=== PATIENT | male | born 1975 ===

== ENCOUNTER 2016-09-18 16:33 | Inpatient (IN) | payer OTHER ==
[2016-09-18 16:54] VITALS: O2SAT 97; BMI 31.3
--- NOTE | 2016-09-18 17:25 | ED PDOC ---
Arrival/HPI - General Chief Complaint: Back Pain Time Seen by Provider: 09/18/16 16:59 Historian: Patient - History of Present Illness Narrative History of Present Illness (Text): 09/18/16 17:19 40 year old male whose past medical history includes depression presents to the emergency department with bilateral lower back pain after doing heavy lifting 3 days ago. He also reports headache and nausea. No urinary or bowel incontinence , saddle anesthesia, or weakness. Time/Duration: < week Symptom Onset: Gradual Symptom Course: Unchanged Activities at Onset: Significant Past Medical History - Provider Review Nursing Documentation Reviewed: Yes - Infectious Disease Hx of Infectious Diseases: None - Cardiac Hx Cardiac Disorders: No Hx Hypertension: No - Pulmonary Hx Respiratory Disorders: No Hx Tuberculosis: No - Neurological Hx Neurological Disorder: No Hx Seizures: Yes (Alcohol related) - HEENT Hx HEENT Disorder: No - Renal Hx Renal Disorder: No - Endocrine/Metabolic Hx Endocrine Disorders: No - Hematological/Oncological Hx Blood Disorders: No Hx Cancer: No - Integumentary Hx Dermatological Disorder: No - Musculoskeletal/Rheumatological Hx Falls: No Hx Fractures: Yes (LEFT ANKLE) - Gastrointestinal Hx Colitis: Yes (Patient reported) HX Swallowing Problems: Yes (Patient reported) - Genitourinary/Gynecological Hx Genitourinary Disorders: No Hx Sexually Transmitted Diseases: No - Psychiatric Hx Anxiety: Yes Hx Depression: Yes Hx Substance Use: No - Surgical History Hx Appendectomy: Yes (13 years ago reported by patient) - Anesthesia Hx Anesthesia: Yes Hx Anesthesia Reactions: No Hx Malignant Hyperthermia: No Family/Social History - Physician Review Nursing Documentation Reviewed: Yes Family/Social History: Unknown Family HX Smoking Status: Heavy Smoker > 10 Cigarettes Daily Hx Alcohol Use: No Hx Substance Use: No Allergies/Home Meds Allergies/Adverse Reactions: Allergies No Known Allergies Allergy (Verified 01/29/16 19:10) Home Medications: Home Meds Medication Instructions Recorded Confirmed Clonazepam [Klonopin] 2 mg PO TID 09/18/16 09/18/16 Risperidone [Risperdal] 1 mg PO HS 09/18/16 09/18/16 busPIRone [Buspar] 5 mg PO DAILY 09/18/16 09/18/16 Review of Systems - Physician Review All systems were reviewed & negative as marked: Yes - Review of Systems Gastrointestinal: Nausea Genitourinary Male: Other (No incontinence) Musculoskeletal: Back Pain Neurological: Headache, Other (No saddle anesthesia or weakness) Physical Exam Vital Signs Reviewed: Yes Vital Signs Temp Pulse Resp BP Pulse Ox 09/18/16 16:51 98.0 F 77 16 124/82 97 Temperature: Afebrile Blood Pressure: Normal Pulse: Regular Respiratory Rate: Normal Appearance: Positive for: Well-Appearing, Non-Toxic, Uncomfortable Pain Distress: Moderate Mental Status: Positive for: Alert and Oriented X 3 - Systems Exam Head: Present: Atraumatic, Normocephalic Pupils: Present: PERRL Extroacular Muscles: Present: EOMI Conjunctiva: Present: Normal Mouth: Present: Moist Mucous Membranes Neck: Present: Normal Range of Motion Respiratory/Chest: Present: Clear to Auscultation, Good Air Exchange. No: Respiratory Distress, Accessory Muscle Use Cardiovascular: Present: Regular Rate and Rhythm, Normal S1, S2. No: Murmurs Abdomen: Present: Normal Bowel Sounds. No: Tenderness, Distention, Peritoneal Signs Back: Present: Paraspinal Tenderness (Lower lumbar tenderness bilaterally), Pain with Leg Raise (Bilaterally with 45 degrees ) Upper Extremity: Present: Normal Inspection. No: Cyanosis, Edema Lower Extremity: Present: Normal Inspection. No: Edema Neurological: Present: GCS=15, CN II-XII Intact, Speech Normal, Motor Func Grossly Intact, Normal Sensory Function Skin: Present: Warm, Dry, Normal Color. No: Rashes Psychiatric: Present: Alert, Oriented x 3, Normal Insight, Normal Concentration Medical Decision Making ED Course and Treatment: Impression: 40 year old male whose past medical history includes depression presents to the emergency department with bilateral lower back pain after doing heavy lifting 3 days ago. Differential Diagnosis included but are not limited to: Musculoskeletal pain Plan: -- Flexeril, Toradol, Zofran -- Reassess and disposition Progress Notes: Patient refused toradol, stating that he always gets something stronger for his back pain issues. I told him to him about the medication and he agreed to take it but he said it's not going to work. Patient is exhibiting drug seeking behavior. 09/18/16 18:25 Patient states that he wants to speak to Psychiatry because he wants to harm himself now. He says that he has a razor blade in his pocket. He is exhibiting drug seeking behavior. After pain medication he appears in no painful distress and is able to walk without ataxia. 09/18/16 20:35 Case discussed with VINNY, who will admit patient to Dr. Bree Bates's service. Valium 5mg PO ordered for muscle spasm. - Lab Interpretations Lab Results: 09/18/16 19:30 09/18/16 19:30 Lab Results 09/18/16 19:30: Alcohol, Quantitative < 10 09/18/16 19:30: Salicylates < 1 L, Acetaminophen < 10.0 L 09/18/16 19:30: Sodium 138, Potassium 4.1, Chloride 104, Carbon Dioxide 25, Anion Gap 13, BUN 18, Creatinine 1.3, Est GFR ( Amer) > 60, Est GFR (Non- Af Amer) > 60, Random Glucose 77, Calcium 9.1, Total Bilirubin 0.7, AST 29, ALT 30, Alkaline Phosphatase 50, Total Protein 7.2, Albumin 4.3, Globulin 2.9, Albumin/Globulin Ratio 1.5 09/18/16 19:30: WBC 10.6, RBC 4.51, Hgb 14.1, Hct 40.7 L, MCV 90.2, MCH 31.3, MCHC 34.6, RDW 13.0, Plt Count 272, MPV 8.6, Gran % 63.2, Lymph % (Auto) 24.5, Avery % (Auto) 4.4, Eos % (Auto) 7.4 H, Baso % (Auto) 0.5, Gran # 6.68 H, Lymph # 2.6, Avery # 0.5, Eos # 0.8 H, Baso # 0.05 - EKG Interpretation Interpreted by ED Physician: Yes (EKG shows NSR at 62 BPM, otherwise normal) Type: 12 lead EKG - Medication Orders Current Medication Orders: Discontinued Medications Cyclobenzaprine HCl (Flexeril) 10 mg PO STAT STA Stop: 09/18/16 17:06 Last Admin: 09/18/16 17:25 Dose: 10 mg Sodium Chloride (Sodium Chloride 0.9%) 1,000 mls @ 999 mls/hr IV .Q1H1M STA Stop: 09/18/16 19:21 Ketorolac Tromethamine (Toradol) 60 mg IM STAT STA Stop: 09/18/16 17:06 Last Admin: 09/18/16 17:25 Dose: 60 mg Ondansetron HCl (Zofran Odt) 4 mg PO STAT STA Stop: 09/18/16 17:07 Last Admin: 09/18/16 17:25 Dose: Not Given Non-Admin Reason: Patient Refused - Scribe Statement The provider has reviewed the documentation as recorded by the Susan Anderson Provider Scribe Attestation: All medical record entries made by the Susan were at my direction and personally dictated by me. I have reviewed the chart and agree that the record accurately reflects my personal performance of the history, physical exam, medical decision making, and the department course for this patient. I have also personally directed, reviewed, and agree with the discharge instructions and disposition. Disposition/Present on Arrival - Present on Arrival Any Indicators Present on Arrival: No History of DVT/PE: No History of Uncontrolled Diabetes: No Urinary Catheter: No History of Decub. Ulcer: No History Surgical Site Infection Following: None - Disposition Have Diagnosis and Disposition been Completed?: Yes Diagnosis: Depression, Suicidal ideation, Back pain Disposition Time: 20:36 Patient Plan: Admission Condition: FAIR Referrals: PCP,NO [Primary Care Provider] - Follow up with primary
[2016-09-18] MEDS ORDERED: Sodium Chloride 0.9% 1,000 ML IV STA (18:21)
[2016-09-18 19:37] LABS: ADD MANUAL DIFF? NO
[2016-09-18 19:40] LABS: BASO # 0.05 K/mm3 (0.0-2.0); BASO % 0.5 % (0.0-3.0); EOS # 0.8 (0.0-0.7); EOS % 7.4 % (1.5-5.0); GRAN # 6.68 (1.4-6.5); GRAN % 63.2 % (50.0-68.0); HEMATOCRIT 40.7 % (42.0-52.0); LYMPH # 2.6 (1.2-3.4); LYMPH % 24.5 % (22.0-35.0); MEAN CELL VOLUME 90.2 fL (80.0-105.0); MEAN CORPUSCULAR HEMOGLOBIN 31.3 pg (25.0-35.0); MEAN CORPUSCULAR HGB CONC 34.6 g/dl (31.0-37.0); MEAN PLATELET VOLUME 8.6 fl (7.0-11.0); MONO # 0.5 (0.1-0.6); MONO % 4.4 % (1.0-6.0); PLATELET COUNT 272 10^3/uL (120.0-450.0); WHITE BLOOD COUNT 10.6 10^3/ul (4.5-11.0)
[2016-09-18 19:54] LABS: ALB/GLOB RATIO 1.5 (1.1-1.8); ALKALINE PHOSPHATASE 50 U/L (38-133); ALT/SGPT 30 U/L (7-56); AST/SGOT 29 U/L (15-59); BILIRUBIN,TOTAL 0.7 mg/dL (0.2-1.3); BLOOD UREA NITROGEN 18 mg/dL (7-21); CALCIUM 9.1 mg/dL (8.4-10.5); CARBON DIOXIDE 25 mmol/L (21-33); CHLORIDE 104 mmol/L (95-110); GFR AFRICAN-AMERICAN > 60; GLUCOSE,RANDOM 77 mg/dL (70-110); POTASSIUM 4.1 mmol/L (3.6-5.0); SODIUM 138 mmol/L (132-148); TOTAL PROTEIN 7.2 g/dL (5.8-8.3)
[2016-09-18] MEDS ORDERED: Alum-Mag Hydrox-Simethicone Susp (30 mL) PO PRN (23:00)
[2016-09-18] MEDS ORDERED: Magnesium Hydroxide Susp 30 ml UD PO PRN (23:00)
--- NOTE | 2016-09-19 04:03 | PCM.BM ---
<Nato Hurley - Last Filed: 09/19/16 06:43> Treatment Plan Problems - Problems identified on initial assessmt suicidal ideation Date Initiated: 09/18/16 Time Initiated: 21:50 Assessment reference: NA Status: Active (de) depression Date Initiated: 09/18/16 Time Initiated: 21:50 Assessment reference: NA Status: Active Treatment assets and liabiliti Patient Assests: cooperative, self-reliant, ADL independent Patient Liabilities: physical pain, substance abuse - Milieu Protocol Maintain good personal hygiene: daily Encourage regular showers, daily Remind patient to perform daily oral care, every shift Assist patient to perform ADL's Maintain personal safety: daily Monitor environment for contraband/sharps, every shift Educate patient to report safety concerns to staff Medication safety: Monitor for expected outcome, potential side effects: every shift, Assess barriers to learning: every shift, Assess readiness for medication education: every shift Family Contact - Goals for Treatment Patient goals for treatment: "pain treatment" <Bree Page - Last Filed: 09/19/16 13:00> - Diagnosis (1) Back pain Status: Acute Interventions: 09/19/16 12:58 * Assess/adjust medications daily and /or as needed * medical team was called * meds compliant * PT evaluation (2) Depression Status: Acute Interventions: 09/19/16 12:58 * Assess/adjust medications daily and /or as needed * See patient on an individual basis 7x/week to assess symptoms of depression * Monitor for side effects & effectiveness of medications * suicide and homicide prevention * safety plan (3) Suicidal ideation Status: Acute Interventions: 09/19/16 12:59 * Assess/adjust medications daily and /or as needed * Discuss risks, benefits, side effects and alternatives of medications * See patient on an individual basis 7x/week to assess level of suicidal thoughts * pt denied thoughts of harming self or others, still pt was educated about safety plan, coping strategies
[2016-09-19 07:42] VITALS: BP 111/58; PULSE 77; RESP 18; TEMP 97.8
--- NOTE | 2016-09-19 11:11 | CARD ---
APPROVED REPORT EKG Measurement Heart [id number] <Conclusion> Normal sinus rhythm Normal ECG
--- NOTE | 2016-09-19 12:30 | CP.PCM.CON ---
History of Present Illness - History of Present Illness History of Present Illness: Internal Medicine Consult Consulted for medical evaluation and management for patient is psychiatric unit. Patient is refusing evaluation at this time and plans to leave AMA. Will sign off. Reconsult if needed. Past Patient History - Infectious Disease Hx of Infectious Diseases: None - Past Social History Smoking Status: Heavy Smoker > 10 Cigarettes Daily - CARDIAC Hx Cardiac Disorders: No Hx Hypertension: No - PULMONARY Hx Tuberculosis: No - NEUROLOGICAL HX Cerebrovascular Accident: No Hx Seizures: Yes (Alcohol related) - HEENT Hx HEENT Problems: No - RENAL Hx Chronic Kidney Disease: No - ENDOCRINE/METABOLIC Hx Endocrine Disorders: No - HEMATOLOGICAL/ONCOLOGICAL Hx Cancer: No Hx Human Immunodeficiency Virus (HIV): No - INTEGUMENTARY Hx Dermatological Problems: No - MUSCULOSKELETAL/RHEUMATOLOGICAL Hx Falls: No Hx Fractures: Yes (LEFT ANKLE) - GASTROINTESTINAL Hx Colitis: Yes (Patient reported) HX Swallowing Problems: Yes (Patient reported) - GENITOURINARY/GYNECOLOGICAL Hx Sexually Transmitted Disorders: No - PSYCHIATRIC Hx Depression: Yes Hx Substance Use: No - SURGICAL HISTORY Hx Appendectomy: Yes (13 years ago reported by patient) - ANESTHESIA Hx Anesthesia: Yes Hx Anesthesia Reactions: No Hx Malignant Hyperthermia: No Meds Allergies/Adverse Reactions: Allergies Allergy/AdvReac Type Severity Reaction Status Date / Time No Known Allergies Allergy Verified 09/18/16 22:57 - Medications Medications: Current Medications Acetaminophen (Tylenol 325mg Tab) 650 mg PO Q4 PRN PRN Reason: Pain, moderate (4-7) Al Hydrox/Mg Hydrox/Simethicone (Maalox Plus 30 Ml) 30 ml PO DAILY PRN PRN Reason: Upset Stomach Buspirone HCl (Buspar) 5 mg PO DAILY ELOY PRN Reason: Protocol Last Admin: 09/19/16 07:37 Dose: 5 mg Clonazepam (Klonopin) 2 mg PO TID ELOY PRN Reason: Protocol Last Admin: 09/19/16 07:38 Dose: 2 mg Ibuprofen (Motrin Tab) 400 mg PO Q6H PRN PRN Reason: Pain, severe (8-10) Last Admin: 09/19/16 07:37 Dose: 400 mg Magnesium Hydroxide (Milk Of Magnesia) 30 ml PO DAILY PRN PRN Reason: Constipation Nicotine (Nicoderm Cq) 1 patch TD DAILY ELOY Last Admin: 09/19/16 07:38 Dose: 1 patch Risperidone (Risperdal Tab) 1 mg PO DAILY ELOY PRN Reason: Protocol Last Admin: 09/19/16 07:37 Dose: 1 mg Sertraline HCl (Zoloft) 100 mg PO DAILY ELOY Last Admin: 09/19/16 07:37 Dose: 100 mg Results - Vital Signs Recent Vital Signs: Last Vital Signs Temp 97.8 F 09/19/16 07:41 Pulse 77 09/19/16 07:41 Resp 18 09/19/16 07:41 BP 111/58 L 09/19/16 07:41 Pulse Ox 97 09/18/16 16:51 - Labs Result Diagrams: 09/18/16 19:30 09/18/16 19:30 Labs: Laboratory Results - last 24 hr 09/18/16 21:10 Urine Opiates Screen Negative Urine Methadone Screen Negative Ur Barbiturates Screen Negative Ur Phencyclidine Scrn Negative Ur Amphetamines Screen Negative U Benzodiazepines Scrn Positive H U Oth Cocaine Metabols Negative U Cannabinoids Screen Negative
--- NOTE | 2016-09-19 13:31 | PCM.PSYCH ---
Initial Psychiatric Evaluation - Initial Psychiatric Evaluation Type of Admission: Voluntary Legal Status: Capacity (patient has capacity to sign consent for treatment) Chief Complaint (in patient's own words): "they promise me that I will be seen by pain management doctor here, they lied to me, I never said that I wanted to kill myself, I said that I have thoughts of cutting myself, but I said so out of frustration" Patient's Reaction to Hospitalization: patient was admitted to the psychiatric inpatient unit for observation of possible thoughts of harming himself, possible depressive symptoms. History of Present Illness and Precipitating Events: shortly patient is 40 years old male, 2 previous psychiatric admissions at [facility] as well as this facility, pt came to [facility] looking for a help for his back problem, which he claimed hurt three days ago, in the ED when pt got to know that he will be discharged, pt said that he wants to cut himself because "this f...ing medication does not work for me" (pt was prescribed toradol). pt was admitted for observation, at the moment of admission pt said that he wants to be discharged because his pain was not addressed, pt signed 48hr notice. patient was seen today at the treatment team meeting, patient presented to have good personal hygiene, good ADLs, presented better to compare to the previous admission which took place here in [facility] in January 2016. pt was observed ambulating with no problems, at the same time pt was holding his back during the interview. when pt was asked what is his goal for this admission pt said "they promised me in the emergency that you will give me pain medications and I will be seen by pain specialist", at the same time pt refused to be seen by medical team today. pt said that he mentioned that he wants to cut himself "out of frustration", and he did not want to kill himself or others. pt reported that he was doing "relatively well", pt currently employed and claimed that he hurt his back by lifting heavy boxes at work. pt said that he was compliant with medications and f/u appointments at [facility], but after he hurt his back pt was not "able to take anything". pt also reported "I am short with benzos, can you give me prescription?" no manic symptoms were elicited. pt denied using drugs. Patient smokes about a pack a day,, counseling provided And patch was provided. Smoking Cessation Counseling: The patient was counseled as to the multiple risks to his/her health from continued use of tobacco products. It was explained that continuing to smoke may lead to multiple short and terminal make up operator negative health consequences, including but not limited to mouth/esophageal /lung cancer, COPD, and heart disease. He/she states he/she understands these risks, and also understands the options and resources available to him/her to help him/her stop smoking. Nicotine replacement therapy, local hotlines, and local resources were discussed as viable options for helping him/her stop his/her tobacco use. The total time spent counseling the patient regarding tobacco cessation was 3 minutes Past psychiatric history: Patient had two admissions to the psychiatric inpatient unit, h/o alcohol use/abuse. Family history: Patient brothers suffer from depression and anxiety. Medical issues possible hypothyroidism,, hypertension, reported that he hurt his back three days ago. 09/18/16 19:30 09/18/16 19:30 Lab Results 09/18/16 21:10: Urine Opiates Screen Negative, Urine Methadone Screen Negative, Ur Barbiturates Screen Negative, Ur Phencyclidine Scrn Negative, Ur Amphetamines Screen Negative, U Benzodiazepines Scrn Positive H, U Oth Cocaine Metabols Negative, U Cannabinoids Screen Negative 09/18/16 19:30: TSH 3rd Generation 5.99 H 09/18/16 19:30: Alcohol, Quantitative < 10 09/18/16 19:30: Salicylates < 1 L, Acetaminophen < 10.0 L 09/18/16 19:30: Sodium 138, Potassium 4.1, Chloride 104, Carbon Dioxide 25, Anion Gap 13, BUN 18, Creatinine 1.3, Est GFR ( Amer) > 60, Est GFR (Non- Af Amer) > 60, Random Glucose 77, Calcium 9.1, Total Bilirubin 0.7, AST 29, ALT 30, Alkaline Phosphatase 50, Total Protein 7.2, Albumin 4.3, Globulin 2.9, Albumin/Globulin Ratio 1.5 09/18/16 19:30: WBC 10.6, RBC 4.51, Hgb 14.1, Hct 40.7 L, MCV 90.2, MCH 31.3, MCHC 34.6, RDW 13.0, Plt Count 272, MPV 8.6, Gran % 63.2, Lymph % (Auto) 24.5, Rush % (Auto) 4.4, Eos % (Auto) 7.4 H, Baso % (Auto) 0.5, Gran # 6.68 H, Lymph # 2.6, Rush # 0.5, Eos # 0.8 H, Baso # 0.05 Vital Signs Temp Pulse Resp BP Pulse Ox 09/19/16 07:41 97.8 F 77 18 111/58 L 09/18/16 21:50 97.3 F L 57 L 20 113/76 09/18/16 16:51 98.0 F 77 16 124/82 97 Current Medications: zoloft klonopin remeron Past Psychiatric History - Past Psychiatric History Previous Treatment History: Inpatient Prior Professional Help: see HPI Prior Psychiatric Treatment: see hPI At what hospital: see HPI Duration: see HPI Nature of Treatment: see HPI Explanation of prior treatment: see HPI History of Abuse: denied History of ETOH/Drug Use: see HPI History of Family Illness: see HPI Pertinent Medical Hx (Current Medical&Sleep Prob, Allergies): Allergies Allergy/AdvReac Type Severity Reaction Status Date / Time No Known Allergies Allergy Verified 09/18/16 22:57 Sertraline [Zoloft] 100 mg PO DAILY #60 tab 01/29/16 Clonazepam [Klonopin] 2 mg PO TID 09/18/16 Risperidone [Risperdal] 1 mg PO HS 09/18/16 busPIRone [Buspar] 5 mg PO DAILY 09/18/16 Review of Systems - Review of Systems Systems not reviewed;Unavailable: Acuity of Condition - EENT Eyes: As Per HPI Ears: As Per HPI Nose/Mouth/Throat: As Per HPI - Cardiovascular Cardiovascular: As Per HPI - Respiratory Respiratory: As Per HPI - Gastrointestinal Gastrointestinal: As Per HPI - Genitourinary Genitourinary: As Per HPI - Reproductive: Male Reproductive:Male: As Per HPI - Musculoskeletal Musculoskeletal: As Par HPI - Integumentary Integumentary: As Per HPI - Neurological Neurological: As Per HPI - Psychiatric Psychiatric: As Per HPI - Endocrine Endocrine: As Per HPI - Hematologic/Lymphatic Hematologic: As Per HPI Mental Status Examination - Personal Presentation Personal Presentation: Looks stated age - Affect Affect: Constricted - Motor Activity Motor Activity: Calm - Reliability in Providing Information Reliability in Providing Information: Fair - Speech Speech: Organized - Mood Mood: Depressed (reported to feel "upset" over his back pain) - Formal Thought Process Formal Thought Process: No Impairment - Obsessions/Compulsions Obsessions: None Compulsions: None - Cognitive Functions Orientation: Person, Place, Situation, Time Sensorium: Alert Abstract Thinking: Lignum Estimate of Intelligence: Average Judgement: Intact, as evidence by: Insight regarding need for hospitalization - Strength & Assets Inventory Strength & Assets Inventory: Cooperative, Other (pt came looking for help, pt is initiating his admissions himself, pt is not psychotic, has apt, works) - Limitations Limitations: Living alone DSM 5 DX - DSM 5 DSM 5 Diagnosis: as per h/o mood disorder r/o bipolar disorder r/o alcohol use disorder r/o addiction to benzos and pain meds - Recommended/Plan of Treatment Treatment Recommendations and Plan of Treatment: pt submitted 48 hr notice, requesting to be discharged pt has future oriented plans "I want to look for the pain specialist, may be to go to other hospital and get help what I need" pt does not meet criteria for [facility] screening pt will be d/c AMA pt's meds were confirmed by ED physician Clonazepam [Klonopin] 2 mg PO TID 09/18/16 Risperidone [Risperdal] 1 mg PO HS 09/18/16 busPIRone [Buspar] 5 mg PO DAILY 09/18/16 pt has f/u appt at [facility] September 30 pt adamantly denied thoughts of harming self or others. Projected ELOS: 1day Prognosis: fair Discharge Plan and Discharge Criteria: Pt will be not depressed or manic, will be more hopeful, will be not psychotic or anxious, will be tolerating medications well, will not have major side effects, will be able to function, will not pose threat to self or others. - Smoking Cessation Smoking Cessation Initiated: Yes
--- NOTE | 2016-09-19 13:36 | PCM.PYCHDC ---
Mental Status Examination - Mental Status Examination Orientation: Person, Place, Situation, Time Memory: Intact Mood: Neutral Affect: Constricted Speech: Appropriate Attention: WNL Concentration: WNL Association: WNL Fund of Knowledge: WNL Formal Thought Process: No Impairment Description of patient's judgement and insight: Pt has good insight into mental and medical illness, pt was calm, cooperative, socially appropriate, no behavioral incidents, no agitation, no aggression. Psychotic Thoughts and Behaviors: Pt denied v/a/t hallucinations, denied paranoid ideations, pt does not appear to be psychotic, and thought process is goal directed. Suicidal Ideation: No Current Homicidal Ideation?: No Plan: pt adamantly denied thoughts of harming self or others denied intent or plan. Discharge Summary - Discharge Note Reason for Hospitalization: patient was admitted to the psychiatric inpatient unit for observation of possible thoughts of harming himself, possible depressive symptoms, pt said that he made statements in the ED "out of frustration", adamantly denied during the interview. Psychiatric History (includes Medical, Family, Personal Hx): see HPI Laboratory Data: Abnormal Lab Results 09/18/16 21:10 Urine Opiates Screen Negative Urine Methadone Screen Negative Ur Barbiturates Screen Negative Ur Phencyclidine Scrn Negative Ur Amphetamines Screen Negative U Benzodiazepines Scrn Positive H U Oth Cocaine Metabols Negative U Cannabinoids Screen Negative 09/18/16 19:30 09/18/16 19:30 Lab Results 09/18/16 21:10: Urine Opiates Screen Negative, Urine Methadone Screen Negative, Ur Barbiturates Screen Negative, Ur Phencyclidine Scrn Negative, Ur Amphetamines Screen Negative, U Benzodiazepines Scrn Positive H, U Oth Cocaine Metabols Negative, U Cannabinoids Screen Negative 09/18/16 19:30: TSH 3rd Generation 5.99 H 09/18/16 19:30: Alcohol, Quantitative < 10 09/18/16 19:30: Salicylates < 1 L, Acetaminophen < 10.0 L 09/18/16 19:30: Sodium 138, Potassium 4.1, Chloride 104, Carbon Dioxide 25, Anion Gap 13, BUN 18, Creatinine 1.3, Est GFR ( Amer) > 60, Est GFR (Non- Af Amer) > 60, Random Glucose 77, Calcium 9.1, Total Bilirubin 0.7, AST 29, ALT 30, Alkaline Phosphatase 50, Total Protein 7.2, Albumin 4.3, Globulin 2.9, Albumin/Globulin Ratio 1.5 09/18/16 19:30: WBC 10.6, RBC 4.51, Hgb 14.1, Hct 40.7 L, MCV 90.2, MCH 31.3, MCHC 34.6, RDW 13.0, Plt Count 272, MPV 8.6, Gran % 63.2, Lymph % (Auto) 24.5, [place] % (Auto) 4.4, Eos % (Auto) 7.4 H, Baso % (Auto) 0.5, Gran # 6.68 H, Lymph # 2.6, [place] # 0.5, Eos # 0.8 H, Baso # 0.05 Vital Signs Temp Pulse Resp BP Pulse Ox 09/19/16 07:41 97.8 F 77 18 111/58 L 09/18/16 21:50 97.3 F L 57 L 20 113/76 09/18/16 16:51 98.0 F 77 16 124/82 97 Consultations:: List each consultation separately and include: 1. Reason for request. 2. Findings. 3. Follow-up Consultations: medical team came to see pt, but pt refused to talk to them. Summary of Hospital Course include:: 1. Description of specific treatment plan utilized for patients during their course of treatmen. 2. Summarize the time- course for resolution of acute symptoms and/or regressed behaviors. 3. Describe issues identified and worked on during hospitalization. 4. Describe medication utilized. 5. Describe medical problems identified and treated. 6. Reassessment of suicide risk Summary of Hospital Course: shortly patient is 40 years old male, [address] [facility] as well as this facility, pt came to [facility] looking for a help for his back problem, which he claimed hurt three days ago, in the ED when pt got to know that he will be discharged, pt said that he wants to cut himself because "this f...ing medication does not work for me" (pt was prescribed toradol). pt was admitted for observation, at the moment of admission pt said that he wants to be discharged because his pain was not addressed, pt signed 48hr notice. patient was seen today at the treatment team meeting, patient presented to have good personal hygiene, good ADLs, presented better to compare to the previous admission which took place here in [facility] in January 2016. pt was observed ambulating with no problems, at the same time pt was holding his back during the interview. when pt was asked what is his goal for this admission pt said "they promised me in the emergency that you will give me pain medications and I will be seen by pain specialist", at the same time pt refused to be seen by medical team today. pt said that he mentioned that he wants to cut himself "out of frustration", and he did not want to kill himself or others. pt reported that he was doing "relatively well", pt currently employed and claimed that he hurt his back by lifting heavy boxes at work. pt said that he was compliant with medications and f/u appointments at [facility], but after he hurt his back pt was not "able to take anything". pt also reported "I am short with benzos, can you give me prescription?" no manic symptoms were elicited. pt denied using drugs. Patient smokes about a pack a day,, counseling provided And patch was provided. Smoking Cessation Counseling: The patient was counseled as to the multiple risks to his/her health from continued use of tobacco products. It was explained that continuing to smoke may lead to multiple short and prison negative health consequences, including but not limited to mouth/esophageal /lung cancer, COPD, and heart disease. He/she states he/she understands these risks, and also understands the options and resources available to him/her to help him/her stop smoking. Nicotine replacement therapy, local hotlines, and local resources were discussed as viable options for helping him/her stop his/her tobacco use. The total time spent counseling the patient regarding tobacco cessation was 3 minutes Past psychiatric history: Patient had two admissions to the psychiatric inpatient unit, h/o alcohol use/abuse. Family history: Patient brothers suffer from depression and anxiety. Medical issues possible hypothyroidism,, hypertension, reported that he hurt his back three days ago. 09/18/16 19:30 09/18/16 19:30 Lab Results 09/18/16 21:10: Urine Opiates Screen Negative, Urine Methadone Screen Negative, Ur Barbiturates Screen Negative, Ur Phencyclidine Scrn Negative, Ur Amphetamines Screen Negative, U Benzodiazepines Scrn Positive H, U Oth Cocaine Metabols Negative, U Cannabinoids Screen Negative 09/18/16 19:30: TSH 3rd Generation 5.99 H 09/18/16 19:30: Alcohol, Quantitative < 10 09/18/16 19:30: Salicylates < 1 L, Acetaminophen < 10.0 L 09/18/16 19:30: Sodium 138, Potassium 4.1, Chloride 104, Carbon Dioxide 25, Anion Gap 13, BUN 18, Creatinine 1.3, Est GFR ( Amer) > 60, Est GFR (Non- Af Amer) > 60, Random Glucose 77, Calcium 9.1, Total Bilirubin 0.7, AST 29, ALT 30, Alkaline Phosphatase 50, Total Protein 7.2, Albumin 4.3, Globulin 2.9, Albumin/Globulin Ratio 1.5 09/18/16 19:30: WBC 10.6, RBC 4.51, Hgb 14.1, Hct 40.7 L, MCV 90.2, MCH 31.3, MCHC 34.6, RDW 13.0, Plt Count 272, MPV 8.6, Gran % 63.2, Lymph % (Auto) 24.5, [place] % (Auto) 4.4, Eos % (Auto) 7.4 H, Baso % (Auto) 0.5, Gran # 6.68 H, Lymph # 2.6, [place] # 0.5, Eos # 0.8 H, Baso # 0.05 Vital Signs Temp Pulse Resp BP Pulse Ox 09/19/16 07:41 97.8 F 77 18 111/58 L 09/18/16 21:50 97.3 F L 57 L 20 113/76 09/18/16 16:51 98.0 F 77 16 124/82 97 pt submitted 48hr notice, requesting to be d/c pt does not meet a criteria for [facility] screening pt will be d/c AMA - Diagnosis (1) Back pain Status: Acute Priority: High (2) Depression Status: Chronic Priority: Low (3) Suicidal ideation Status: Ruled-out Priority: Low - Final Diagnosis (DSM 5) Condition upon Discharge: FAIR Disposition: AGAINST MEDICAL ADVICE Follow-up Treatment Plan: pt submitted 48 hr notice, requesting to be discharged pt has future oriented plans "I want to look for the pain specialist, may be to go to other hospital and get help what I need" pt does not meet criteria for [facility] screening pt will be d/c AMA pt's meds were confirmed by ED physician Clonazepam [Klonopin] 2 mg PO TID 09/18/16 Risperidone [Risperdal] 1 mg PO HS 09/18/16 busPIRone [Buspar] 5 mg PO DAILY 09/18/16 pt has f/u appt at [facility] September 30 pt adamantly denied thoughts of harming self or others. - Smoking Cessation Smoking Cessation Medication prescribed: Yes - Antipsychotic Medications Pt discharged on 2 or more routine antipsychotic medications: No
--- NOTE | 2016-09-19 14:17 | CP.PCM.CON ---
History of Present Illness - History of Present Illness History of Present Illness: medical consult was requested for routine evaluation. Patient was standing in the hallway. Refused to talk to us. Refused examination. Stated that he is signing against medical advice. Please reconsult when patient agrees to talk to us. Past Patient History - Infectious Disease Hx of Infectious Diseases: None - Past Social History Smoking Status: Heavy Smoker > 10 Cigarettes Daily - CARDIAC Hx Cardiac Disorders: No Hx Hypertension: No - PULMONARY Hx Tuberculosis: No - NEUROLOGICAL HX Cerebrovascular Accident: No Hx Seizures: Yes (Alcohol related) - HEENT Hx HEENT Problems: No - RENAL Hx Chronic Kidney Disease: No - ENDOCRINE/METABOLIC Hx Endocrine Disorders: No - HEMATOLOGICAL/ONCOLOGICAL Hx Cancer: No Hx Human Immunodeficiency Virus (HIV): No - INTEGUMENTARY Hx Dermatological Problems: No - MUSCULOSKELETAL/RHEUMATOLOGICAL Hx Falls: No Hx Fractures: Yes (LEFT ANKLE) - GASTROINTESTINAL Hx Colitis: Yes (Patient reported) HX Swallowing Problems: Yes (Patient reported) - GENITOURINARY/GYNECOLOGICAL Hx Sexually Transmitted Disorders: No - PSYCHIATRIC Hx Depression: Yes Hx Substance Use: No - SURGICAL HISTORY Hx Appendectomy: Yes (13 years ago reported by patient) - ANESTHESIA Hx Anesthesia: Yes Hx Anesthesia Reactions: No Hx Malignant Hyperthermia: No Meds Allergies/Adverse Reactions: Allergies Allergy/AdvReac Type Severity Reaction Status Date / Time No Known Allergies Allergy Verified 09/18/16 22:57 Results - Vital Signs Recent Vital Signs: Last Vital Signs Temp 97.8 F 09/19/16 07:41 Pulse 77 09/19/16 07:41 Resp 18 09/19/16 07:41 BP 111/58 L 09/19/16 07:41 Pulse Ox 97 09/18/16 16:51 - Labs Result Diagrams: 09/18/16 19:30 09/18/16 19:30 Labs: Laboratory Results - last 24 hr 09/18/16 21:10 Urine Opiates Screen Negative Urine Methadone Screen Negative Ur Barbiturates Screen Negative Ur Phencyclidine Scrn Negative Ur Amphetamines Screen Negative U Benzodiazepines Scrn Positive H U Oth Cocaine Metabols Negative U Cannabinoids Screen Negative
== END 2016-09-19 12:50 | disposition left against medical advice (07) | DRG 430 ==
LOC: ED 16:33 → PSYC 20:33
PROVIDERS: ADMIT Psychiatry & Neurology Psychiatry; ATTEND Psychiatry & Neurology Psychiatry
DX: F32.89 Other specified depressive episodes (principal); G40.89 Other seizures; R45.851 Suicidal ideations; I10 Essential (primary) hypertension; M54.9 Dorsalgia, unspecified; X50.0XXA Overexertion from strenuous movement or load, initial encounter; Z90.49 Acquired absence of other specified parts of digestive tract; F17.210 Nicotine dependence, cigarettes, uncomplicated; Z87.81 Personal history of (healed) traumatic fracture; K52.9 Noninfective gastroenteritis and colitis, unspecified; F41.9 Anxiety disorder, unspecified; R40.2412 Glasgow coma scale score 13-15, at arrival to emergency department; E03.9 Hypothyroidism, unspecified